=== PATIENT | female | born 2000 | race Caucasian/White ===

== ENCOUNTER 2019-01-08 15:20 | Observation (INO) ==
--- NOTE | 2019-01-08 15:37 | Emergency Department Note ---
Disposition Psych HPI - General Chief Complaint: ED Psychiatric Symptoms Stated Complaint: SI Time Seen by Provider: 01/08/19 15:27 Source: patient - Related Data Previous Rx's Medication Instructions Recorded Lactobacillus Rhamnosus GG 1 each PO DAILY #11 capsule 01/14/16 [Culturelle] Cetirizine HCl/Pseudoephedrine 1 each PO BID #14 tab.er.12h 10/05/16 [Cetirizine-Pse ER 5-120 mg Tab] Ibuprofen [Motrin] 400 mg PO Q6-8H PRN #30 tablet 10/05/16 Lansoprazole [Prevacid] 30 mg PO BID #28 capsule. 07/05/17 Peg 3350/Na Sulf,Bicarb,Cl/KCl 1 each PO ONCE #1 powd.pack 05/16/18 [Golytely Packet] Bisacodyl [Dulcolax] 2 tab PO AD PRN #10 tablet 12/14/18 Ondansetron HCl [Zofran] 4 mg PO TID #15 tablet 12/18/18 Allergies Allergy/AdvReac Type Severity Reaction Status Date / Time Erythromycin Base Allergy Rash Verified 12/18/18 15:47 [From Pediazole] ibuprofen Allergy Abdominal Verified 12/18/18 15:47 Pain Sulfisoxazole Allergy Rash Verified 12/18/18 15:47 [From Pediazole] Past Medical History - Past Medical History Medical history: Reports: non-contributory Surgical history: Reports: other Psychiatric history: Reports: no psych history - Social History Smoking Status: Current every day smoker Smokeless Tobacco Status: No Alcohol use: Reports: none Drug use: Reports: none Physical Exam - General Limitations: no limitations Course Vital Signs Temperature 98.5 F 01/08/19 15:24 Pulse Rate 88 01/08/19 15:24 Respiratory Rate 18 01/08/19 15:24 Blood Pressure 132/84 01/08/19 15:24 O2 Sat by Pulse Oximetry 97 01/08/19 15:24 Temperature 98.5 F 01/08/19 15:24 Pulse Rate 88 01/08/19 15:24 Respiratory Rate 18 01/08/19 15:24 Blood Pressure 132/84 01/08/19 15:24 O2 Sat by Pulse Oximetry 97 01/08/19 15:24 Oxygen Delivery Oxygen Delivery Room Air Psychiatric Medical Clearance - Medical Clearance Checklist Medical History: No Social History Section defined Current Vitals: Last Vital Signs Temp 98.5 F 01/08/19 15:24 Pulse 88 01/08/19 15:24 Resp 18 01/08/19 15:24 BP 132/84 01/08/19 15:24 Pulse Ox 97 01/08/19 15:24 Statement of Medical Clearance: I have evaluated the patient, reviewed diagnostic information, and certify that the patient's medical condition is sufficiently stable that transfer to the psychiatric unit does not pose a significant risk of deterioration.
[2019-01-08 15:56] LABS: Bilirubin,Urine Small (Negative); Blood,Urine Negative (Negative); Clarity,Urine Cloudy (Clear); Color,Urine Yellow (Yellow); Glucose,Urine (UA) Normal (Normal); Ketones,Urine Negative (Negative); Leukocyte Esterase,Urine Moderate (Negative); Nitrite,Urine Negative (Negative); PH,Urine 5.5 pH Units (5.0-8.0); Protein,Urine Negative (Neg-Trace); Specific Gravity,Urine 1.018 (1.010-1.025); Urobilinogen,Urine Normal (Normal)
[2019-01-08 15:59] LABS: Bacteria,Urine Many per hpf (None-Few); Hyaline Casts,Urine None Seen per lpf (None-Few); Squamous Epithelial Cell,Urine Many per lpf (None-Few); WBC,Urine 30-50 per hpf (0-3)
[2019-01-08 16:03] LABS: Basophils % 0.4 %; Eosinophils # 0.3 K/mcL (0.0-0.6); Eosinophils # 0.4 K/mcL (0.0-0.6); Eosinophils % 3.8 %; Eosinophils % 4.5 %; Hematocrit 40.8 % (35.3-44.9); Hematocrit 42.3 % (35.3-44.9); Hemoglobin 14.5 g/dL (11.5-15.4); Hemoglobin 14.6 g/dL (11.5-15.4); Immature Granulocytes % 0.1 % (0-4); Immature Granulocytes % 0.3 % (0-4); Lymphocytes # 2.8 K/mcL (0.6-4.6); Lymphocytes # 2.9 K/mcL (0.6-4.6); Lymphocytes % 35.9 %; Mean Corpuscular HGB Conc 34.5 g/dL (31.6-35.5); Mean Corpuscular HGB Conc 35.5 g/dL (31.6-35.5); Mean Corpuscular Hemoglobin 30.2 pg (28.0-33.3); Mean Corpuscular Hemoglobin 30.5 pg (28.0-33.3); Mean Corpuscular Volume 85.7 fL (83.0-100.0); Mean Corpuscular Volume 87.6 fL (83.0-100.0); Mean Platelet Volume 9.7 fL (9.4-12.4); Mean Platelet Volume 9.8 fL (9.4-12.4); Monocytes # 0.5 K/mcL (0.0-1.3); Monocytes % 6.4 %; Monocytes % 6.7 %; Neutrophils # 4.2 K/mcL (1.6-8.9); Platelet Count 186 K/mcL (140-400); Platelet Count 194 K/mcL (140-400); Red Blood Count 4.76 M/mcL (3.82-4.97); Red Blood Count 4.83 M/mcL (3.82-4.97); Red Cell Distribution Width 12.7 % (11.5-14.5); Red Cell Distribution Width 12.9 % (11.5-14.5); Segmented Neutrophils % 52.7 %; Segmented Neutrophils % 53.8 %
[2019-01-08 16:16] LABS: Amphetamine Screen,Urine Negative ng/mL (Cutoff=1000); Barbiturate Screen,Urine Negative ng/mL (Cutoff=200); Benzodiazepines Screen,Urine Negative ng/mL (Cutoff=200); Cannabinoid Screen,Urine Positive ng/mL (Cutoff = 50); Cocaine Screen,Urine Negative ng/mL (Cutoff= 300); Opiate Screen,Urine Negative ng/mL (Cutoff=300); Phencyclidine Screen,Urine Negative ng/mL (Cutoff=25)
[2019-01-08 16:22] LABS: Acetaminophen < 10 mcg/mL (10-20); BUN/Creatinine Ratio 17 (6-26); Blood Urea Nitrogen 13 mg/dL (6-20); Calcium 9.8 mg/dL (8.6-10.3); Carbon Dioxide 24 mEq/L (23-29); Chloride 109 mEq/L (98-107); Ethanol < 10 mg/dL (Less than 10); Glucose 117 mg/dL (70-105); Osmolality,Calculated 291 (280-300); Potassium 3.7 mEq/L (3.5-5.1); Salicylate < 2.5 mg/dL (15.0-30.0); Sodium 140 mEq/L (136-145); eGFR For Non-African Americans > 60
[2019-01-08 16:25] LABS: Acetaminophen < 10 mcg/mL (10-20); BUN/Creatinine Ratio 18 (6-26); Blood Urea Nitrogen 13 mg/dL (6-20); Calcium 9.5 mg/dL (8.6-10.3); Carbon Dioxide 25 mEq/L (23-29); Chloride 108 mEq/L (98-107); Ethanol < 10 mg/dL (Less than 10); Glucose 112 mg/dL (70-105); Osmolality,Calculated 291 (280-300); Potassium 3.6 mEq/L (3.5-5.1); Salicylate < 2.5 mg/dL (15.0-30.0); Sodium 140 mEq/L (136-145); eGFR For Non-African Americans > 60
--- NOTE | 2019-01-08 16:29 | Emergency Department Note ---
Disposition Clinical Impression: Suicidal ideation Disposition: Admitted As Inpatient Condition: Fair Referrals: NONE,PCP [Primary Care Provider] - Forms: ED Satisfaction Letter General Adult HPI - General Chief complaint: ED Psychiatric Symptoms Stated complaint: SI Time Seen by Provider: 01/08/19 15:27 Source: patient Limitations: no limitations Nursing Notes Reviewed: Yes Vital Signs Reviewed: Yes - History of Present Illness HPI Narrative: Patient presents to the ED with her dad with a chief complaint of suicidal thoughts. Patient states she is been feeling down for the past couple of months. self-harm. She denies any specific plan. No prior attempts. Denies any history of drug or alcohol abuse. Denies intentional overdose. Patient does see a physician and Fred who has recently adjusted her medications about a month ago. She states this is not helping. Denies any prior psychiatric admissions. Denies . Pain Scale: 0 - Related Data Home Medications Medication Instructions Recorded Confirmed Bisacodyl [Dulcolax] 2 tab PO HS 01/08/19 01/08/19 Buspirone HCl [Buspar] 5 mg PO BID 01/08/19 01/08/19 Hyoscyamine SL [Levsin SL] 0.125 mg SL Q6H PRN 01/08/19 01/08/19 Linaclotide [Linzess] 290 mcg PO DAILY 01/08/19 01/08/19 Omeprazole [PriLOSEC] 40 mg PO BID 01/08/19 01/08/19 Allergies Allergy/AdvReac Type Severity Reaction Status Date / Time Erythromycin Base Allergy Rash Verified 12/18/18 15:47 [From Pediazole] ibuprofen Allergy Abdominal Verified 12/18/18 15:47 Pain Sulfisoxazole Allergy Rash Verified 12/18/18 15:47 [From Pediazole] All systems ED: reviewed and negative except as stated. Constitutional: Denies: fever Cardiovascular: Denies: chest pain Respiratory: Denies: dyspnea Gastrointestinal: Denies: abdominal pain Past Medical History - Past Medical History Attestation: Yes The following information was validated with the patient. Source: patient Medical history: Reports: non-contributory Surgical history: Reports: other Psychiatric history: Reports: no psych history - Social History Smoking Status: Current every day smoker Smokeless Tobacco Status: No Alcohol use: Reports: none Drug use: Reports: none Physical Exam Patient is awake and alert. She sitting up in bed in no acute distress. - General Limitations: no limitations General appearance: alert, in no apparent distress - Head Head exam: atraumatic, normocephalic, normal inspection - Eye Eye exam: Present: normal appearance, PERRL - ENT ENT exam: normal exam, normal oropharynx - Neck Neck exam: Present: normal inspection, full ROM - Chest Chest inspection: Present: normal inspection - Respiratory Respiratory exam: Present: normal lung sounds bilaterally - Cardiovascular Cardiovascular exam: Present: regular rate, normal rhythm, normal heart sounds - Abdominal Exam Abdominal exam: Present: soft, Non-Tender - Neurological Exam Neurological exam: Present: alert, oriented X3 - Psychiatric Psychiatric exam: Present: normal affect - Skin Skin exam: Present: warm, dry Course Course Narrative: Patient with no physical complaints. Medical clearance and evaluation by 1A. - Reevaluation(s) Reevaluation #1: Patient medically cleared. 1A has been contacted for consult.[id number] Time: 16:40 Vital Signs Temperature 98.5 F 01/08/19 15:24 Pulse Rate 88 01/08/19 15:24 Respiratory Rate 18 01/08/19 15:24 Blood Pressure 132/84 01/08/19 15:24 O2 Sat by Pulse Oximetry 97 01/08/19 15:24 Temperature 98.5 F 01/08/19 15:24 Pulse Rate 88 01/08/19 15:24 Respiratory Rate 18 01/08/19 15:24 Blood Pressure 132/84 01/08/19 15:24 O2 Sat by Pulse Oximetry 97 01/08/19 15:24 Oxygen Delivery Oxygen Delivery Room Air Medical Decision Making - [facility] Narrative Medical decision making narrative: Patient admitted to psychiatry. - Lab Data Result diagrams: 01/08/19 15:51 01/08/19 15:51 Lab Results 01/08/19 01/08/19 01/08/19 Range/Units 15:51 15:51 15:51 WBC 7.9 8.0 (4.3-11.1) K/mcL RBC 4.83 4.76 (3.82-4.97) M/mcL Hgb 14.6 14.5 (11.5-15.4) g/dL Hct 42.3 40.8 (35.3-44.9) % MCV 87.6 85.7 (83.0-100.0) fL MCH 30.2 30.5 (28.0-33.3) pg MCHC 34.5 35.5 (31.6-35.5) g/dL RDW 12.7 12.9 (11.5-14.5) % Plt Count 194 186 (140-400) K/mcL MPV 9.8 9.7 (9.4-12.4) fL Immature Gran % 0.3 0.1 (0-4) % Seg Neutrophils % 53.8 52.7 % Lymphocytes % 35.0 35.9 % Monocytes % 6.7 6.4 % Eosinophils % 3.8 4.5 % Basophils % 0.4 0.4 % Neutrophils # 4.2 4.2 (1.6-8.9) K/mcL Lymphocytes # 2.8 2.9 (0.6-4.6) K/mcL Monocytes # 0.5 0.5 (0.0-1.3) K/mcL Eosinophils # 0.3 0.4 (0.0-0.6) K/mcL Basophils # 0.0 0.0 (0.0-0.2) K/mcL Sodium 140 (136-145) mEq/L Potassium 3.7 (3.5-5.1) mEq/L Chloride 109 H (98-107) mEq/L Carbon Dioxide 24 (23-29) mEq/L BUN 13 (6-20) mg/dL Creatinine 0.75 (0.60-1.20) mg/dL Est GFR ( Amer) > 60 Est GFR (Non-Af Amer) > 60 BUN/Creatinine Ratio 17 (6-26) Glucose 117 H (70-105) mg/dL Calculated Osmolality 291 (280-300) Calcium 9.8 (8.6-10.3) mg/dL TSH (0.340-5.600) mcIU/mL Urine Color (Yellow) Urine Clarity (Clear) Urine pH (5.0-8.0) pH Units Ur Specific [place] (1.010-1.025) Urine Protein (Neg-Trace) mg/dL Urine Glucose (UA) (Normal) mg/dL Urine Ketones (Negative) mg/dL Urine Blood (Negative) Urine Nitrite (Negative) Urine Bilirubin (Negative) Urine Urobilinogen (Normal) mg/dL Ur Leukocyte Esterase (Negative) Urine Microscopic RBC (0-3) per hpf Urine Microscopic WBC (0-3) per hpf Ur Squamous Epith Cells (None-Few) per lpf Urine Bacteria (None-Few) per hpf Hyaline Casts (None-Few) per lpf Urine Test (Negative) Salicylates < 2.5 L (15.0-30.0) mg/dL Urine Opiates Screen (Yceemv=322) ng/mL Acetaminophen < 10 L (10-20) mcg/mL Ur Barbiturates Screen (Bpteuc=398) ng/mL Ur Phencyclidine Scrn (Cutoff=25) ng/mL Ur Amphetamines Screen (Cndeji=7025) ng/mL U Benzodiazepines Scrn (Olgpuh=971) ng/mL Urine Cocaine Screen (Cutoff= 300) ng/mL U Marijuana (THC) Screen (Cutoff = 50) ng/mL Ur Drug Screen Interp Ethyl Alcohol < 10 (Less than 10) mg/dL 01/08/19 01/08/19 01/08/19 Range/Units 15:51 Unknown Unknown WBC (4.3-11.1) K/mcL RBC (3.82-4.97) M/mcL Hgb (11.5-15.4) g/dL Hct (35.3-44.9) % MCV (83.0-100.0) fL MCH (28.0-33.3) pg MCHC (31.6-35.5) g/dL RDW (11.5-14.5) % Plt Count (140-400) K/mcL MPV (9.4-12.4) fL Immature Gran % (0-4) % Seg Neutrophils % % Lymphocytes % % Monocytes % % Eosinophils % % Basophils % % Neutrophils # (1.6-8.9) K/mcL Lymphocytes # (0.6-4.6) K/mcL Monocytes # (0.0-1.3) K/mcL Eosinophils # (0.0-0.6) K/mcL Basophils # (0.0-0.2) K/mcL Sodium 140 (136-145) mEq/L Potassium 3.6 (3.5-5.1) mEq/L Chloride 108 H (98-107) mEq/L Carbon Dioxide 25 (23-29) mEq/L BUN 13 (6-20) mg/dL Creatinine 0.74 (0.60-1.20) mg/dL Est GFR ( Amer) > 60 Est GFR (Non-Af Amer) > 60 BUN/Creatinine Ratio 18 (6-26) Glucose 112 H (70-105) mg/dL Calculated Osmolality 291 (280-300) Calcium 9.5 (8.6-10.3) mg/dL TSH 1.209 (0.340-5.600) mcIU/mL Urine Color Yellow (Yellow) Urine Clarity Cloudy A (Clear) Urine pH 5.5 (5.0-8.0) pH Units Ur Specific [place] 1.018 (1.010-1.025) Urine Protein Negative (Neg-Trace) mg/dL Urine Glucose (UA) Normal (Normal) mg/dL Urine Ketones Negative (Negative) mg/dL Urine Blood Negative (Negative) Urine Nitrite Negative (Negative) Urine Bilirubin Small H (Negative) Urine Urobilinogen Normal (Normal) mg/dL Ur Leukocyte Esterase Moderate H (Negative) Urine Microscopic RBC 3-5 H (0-3) per hpf Urine Microscopic WBC 30-50 H (0-3) per hpf Ur Squamous Epith Cells Many H (None-Few) per lpf Urine Bacteria Many H (None-Few) per hpf Hyaline Casts None Seen (None-Few) per lpf Urine Test (Negative) Salicylates < 2.5 L (15.0-30.0) mg/dL Urine Opiates Screen Negative (Yanvub=007) ng/mL Acetaminophen < 10 L (10-20) mcg/mL Ur Barbiturates Screen Negative (Fwzpot=848) ng/mL Ur Phencyclidine Scrn Negative (Cutoff=25) ng/mL Ur Amphetamines Screen Negative (Xqikzu=5007) ng/mL U Benzodiazepines Scrn Negative (Gynjld=063) ng/mL Urine Cocaine Screen Negative (Cutoff= 300) ng/mL U Marijuana (THC) Screen Positive H (Cutoff = 50) ng/mL Ur Drug Screen Interp See Below Ethyl Alcohol < 10 (Less than 10) mg/dL 01/08/19 Range/Units Unknown WBC (4.3-11.1) K/mcL RBC (3.82-4.97) M/mcL Hgb (11.5-15.4) g/dL Hct (35.3-44.9) % MCV (83.0-100.0) fL MCH (28.0-33.3) pg MCHC (31.6-35.5) g/dL RDW (11.5-14.5) % Plt Count (140-400) K/mcL MPV (9.4-12.4) fL Immature Gran % (0-4) % Seg Neutrophils % % Lymphocytes % % Monocytes % % Eosinophils % % Basophils % % Neutrophils # (1.6-8.9) K/mcL Lymphocytes # (0.6-4.6) K/mcL Monocytes # (0.0-1.3) K/mcL Eosinophils # (0.0-0.6) K/mcL Basophils # (0.0-0.2) K/mcL Sodium (136-145) mEq/L Potassium (3.5-5.1) mEq/L Chloride (98-107) mEq/L Carbon Dioxide (23-29) mEq/L BUN (6-20) mg/dL Creatinine (0.60-1.20) mg/dL Est GFR ( Amer) Est GFR (Non-Af Amer) BUN/Creatinine Ratio (6-26) Glucose (70-105) mg/dL Calculated Osmolality (280-300) Calcium (8.6-10.3) mg/dL TSH (0.340-5.600) mcIU/mL Urine Color (Yellow) Urine Clarity (Clear) Urine pH (5.0-8.0) pH Units Ur Specific [place] (1.010-1.025) Urine Protein (Neg-Trace) mg/dL Urine Glucose (UA) (Normal) mg/dL Urine Ketones (Negative) mg/dL Urine Blood (Negative) Urine Nitrite (Negative) Urine Bilirubin (Negative) Urine Urobilinogen (Normal) mg/dL Ur Leukocyte Esterase (Negative) Urine Microscopic RBC (0-3) per hpf Urine Microscopic WBC (0-3) per hpf Ur Squamous Epith Cells (None-Few) per lpf Urine Bacteria (None-Few) per hpf Hyaline Casts (None-Few) per lpf Urine Test Negative (Negative) Salicylates (15.0-30.0) mg/dL Urine Opiates Screen (Ouwppt=312) ng/mL Acetaminophen (10-20) mcg/mL Ur Barbiturates Screen (Dizyck=531) ng/mL Ur Phencyclidine Scrn (Cutoff=25) ng/mL Ur Amphetamines Screen (Vesumh=7208) ng/mL U Benzodiazepines Scrn (Clmfje=936) ng/mL Urine Cocaine Screen (Cutoff= 300) ng/mL U Marijuana (THC) Screen (Cutoff = 50) ng/mL Ur Drug Screen Interp Ethyl Alcohol (Less than 10) mg/dL
[2019-01-08 16:37] LABS: Thyroid Stimulating Hormone 1.209 mcIU/mL (0.340-5.600)
[2019-01-08] MEDS ORDERED: Haloperidol Lactate 5 MG/ML VIAL IM PRN (17:20)
[2019-01-08] MEDS ORDERED: Mag Hydrox/Al Hydrox/Simeth 30 ML UDC PO PRN (17:20)
[2019-01-08] MEDS ORDERED: Acetaminophen 325 MG TABLET PO PRN (17:20)
[2019-01-08] MEDS ORDERED: *HR* LORazepam 1 MG TABLET PO PRN (17:20)
[2019-01-08] MEDS ORDERED: traZODone 50 MG TABLET PO PRN (17:20)
[2019-01-08] MEDS ORDERED: *HR* LORazepam 2 MG/ML VIAL IM PRN (17:20)
[2019-01-08] MEDS ORDERED: hydrOXYzine pamoate 25 MG CAPSULE PO PRN (17:20)
[2019-01-08] MEDS ORDERED: MOM Conc 10 ML UD.LIQ PO PRN (17:20)
[2019-01-08] MEDS ORDERED: Nicotine 2 MG GUM BC PRN (18:39)
--- NOTE | 2019-01-09 08:50 | Discharge Summary ---
Date of Encounter: 01/09/19 Time of Encounter: 08:48 History of Present Illness Chief complaint: suicidal thoughts Admitted From: Emergency Dept History of Present Illness: Ms. Martin is a 18 year old female who came to the emergency room with her father for suicidal thoughts. She reports that she has been depressed since her mother 3 years ago and that the suicidal thoughts have been worse since the anniversary of her in October. She said that she has been having increasing suicidal ideations. She reports that she does not have a specific plan. She reports no intent to harm herself. She has been taking BuSpar but feels it is not effective. She reports sad mood, decreased interest, feelings of guilt and worthlessness, low interest, and decreased energy. She reports that her anxiety is not as much of a problem as the depression. She denies a history of manic symptoms or psychosis. Past Med Surg Social Fam HX - Past Medical History Source: patient Medical history: non-contributory, GERD, other (Chronic constipation) - Past Psychiatric History Psychiatric history: Reports: anxiety, depression. Denies: prior suicide attempt, previous psychiatric hospitalization Past psychiatric history details: Patient reports she has never been in a psychiatric hospital before. She says that she has been tried on different medications including Zoloft and Lexapro as well as Prozac and Wellbutrin. She said they helped briefly. She said the BuSpar that she is currently on has not been helpful. She denies prior suicide attempts. She sees a therapist in [place] but feels she does not have a good connection with her and would like to be linked with anyone. She is not linked with a psychiatrist or primary care physician prescribes her psychiatric medications. Family psychiatric history: Yes Family Psychiatric History Details: She reports depression in her brother father and mother Family History of Suicide: Attempted Family Suicide History Details: She said that her brother attempted suicide with a shotgun - Past Surgical History Surgical History: other - Social History Smoking Status: Current every day smoker Packs per day: .25 Smokeless Tobacco Status: No Alcohol use: none Drug use: none Occupational status: student Current living situation: Home, With Family Activity Level: Independent ambulation Recent Out of Country Travel Within the Last 8 Weeks: No Exposure or Possible Exposure to Illness During Travel: No Additional social history: She is single. She is currently a student. No significant trauma history other than the of her mother 3 years ago - Family History Father Adopted: [place]: nina martin Age: 63 Family Member Ethnicity: Non- Living Status: Still Living Hx Family Cardiac Disorders: Yes Hx Family Respiratory Disorders: Yes (COPD) Hx Family Cancer: No Hx Family GI Disorders: No Hx Family Genitourinary Disorders: No Hx Family Endocrine Disorder: No Hx Family Musculoskeletal Disorders: No Hx Family Neuromuscular Disorders: No Hx Family Neurologic Disorders: No Hx Family HEENT Disorders: No Hx Family Autoimmune Disorders: No Hx Family Reproductive Disorders: No Hx Family Psychosocial Disorders: No Hx Family Medical Disorders: No Medications - Discharge Medications Prescriptions: traZODone [TraZODone] 50 mg PO HS PRN #15 tablet PRN Reason: Insomnia Venlafaxine XR (24 HR) [Effexor Xr] 37.5 mg PO DAILY #15 cap.er.24h Bisacodyl [Dulcolax] 2 tab PO HS 01/08/19 [History] Hyoscyamine SL [Levsin Sl] 0.125 mg SL Q6H PRN 01/08/19 [History] Linaclotide [Linzess] 290 mcg PO DAILY 01/08/19 [History] Omeprazole [PriLOSEC] 40 mg PO BID 01/08/19 [History] Venlafaxine XR (24 HR) [Effexor Xr] 37.5 mg PO DAILY #15 cap.er.24h 01/09/19 [Rx] traZODone [TraZODone] 50 mg PO HS PRN #15 tablet 01/09/19 [Rx] Allergy/AdvReac Type Severity Reaction Status Date / Time Erythromycin Base Allergy Rash Verified 12/18/18 15:47 [From Pediazole] ibuprofen Allergy Abdominal Verified 12/18/18 15:47 Pain Sulfisoxazole Allergy Rash Verified 12/18/18 15:47 [From Pediazole] Review of Systems Constitutional: Denies: fever Eyes: Denies: eye pain Ears, Nose, Throat: Denies: ear pain Cardiovascular: Denies: chest pain Respiratory: Denies: cough Gastrointestinal: Reports: constipation Genitourinary female: Denies: urgency Musculoskeletal: Denies: back pain Integumentary: Denies: rash Neurological: Denies: headache Psychiatric: Reports: depression, anxiety, suicidal ideation Endocrine: Reports: fatigue Hematologic/Lymphatic: Denies: easy bleeding Allergic/Immunologic: Denies: facial swelling Exam - HEENT Head exam IM: Present: atraumatic Eye exam IM: Present: normal appearance ENT exam IM: Present: mucous membranes moist - Neurological Neurological exam: Present: CN II-XII intact (c) - Respiratory Respiratory exam IM: Absent: respiratory distress - GI/Abdominal GI/Abdominal exam IM: Present: tenderness, no peritoneal signs - Extremities Extremities exam IM: Present: full ROM - Skin Skin exam IM: Present: dry - Constitutional Vitals: Temp Pulse Resp BP Pulse Ox 98.1 F 97 16 121/82 96 01/08/19 21:00 01/08/19 21:00 01/08/19 21:00 01/08/19 21:00 01/08/19 21:00 General appearance: age & developmentally appropriate, well-groomed, well- nourished - Musculoskeletal Gait: normal Station: relaxed Strength & Tone: normal for patient - Psychiatric Patient Orientation: Yes Person, Yes Time, Yes Place Level of alertness: Alert Behavior: calm, cooperative Psychomotor activity: Normal Eye Contact: Maintains Eye Contact Mood Description: Euthymic/stable Patient description of mood: Okay Affect description: congruent with mood, full range Speech Volume: Normal Speech pattern: normal rate, normal rhythm, normal tone, fluent, spontaneous Language & Vocabulary: consistent with education Thought Process: Intact, Linear, Goal Oriented Thought Content: No Suicidal ideation (She said she had some last night when she went to the ER and she does chronically have them off and on with no specific plan but says currently she does not have any thoughts of harming herself.), No Homicidal ideation, No Overt delusions Perceptual Disturbances: No Auditory hallucinations, No Visual hallucinations Attention Span Ability: Capable of Focused Attention Memory Description: Grossly Intact Patient Reliability: Reliable Historian Fund of knowledge: Yes abstraction ability, Yes average, Yes aware of current events Intelligence Estimate: Average Judgment: Good Insight: Full Results - Drug Levels and Toxicology Drug Levels and Toxicology: Drug Levels and Toxicity 01/08/19 01/08/19 01/08/19 15:51 15:51 Unknown Urine Opiates Screen Negative Acetaminophen < 10 L < 10 L Ur Barbiturates Screen Negative Ur Phencyclidine Scrn Negative Ur Amphetamines Screen Negative U Benzodiazepines Scrn Negative Urine Cocaine Screen Negative U Marijuana (THC) Screen Positive H Ethyl Alcohol < 10 < 10 - Labs Labs: Laboratory Last Values WBC 8.0 K/mcL (4.3-11.1) 01/08/19 15:51 RBC 4.76 M/mcL (3.82-4.97) 01/08/19 15:51 Hgb 14.5 g/dL (11.5-15.4) 01/08/19 15:51 Hct 40.8 % (35.3-44.9) 01/08/19 15:51 MCV 85.7 fL (83.0-100.0) 01/08/19 15:51 MCH 30.5 pg (28.0-33.3) 01/08/19 15:51 MCHC 35.5 g/dL (31.6-35.5) 01/08/19 15:51 RDW 12.9 % (11.5-14.5) 01/08/19 15:51 Plt Count 186 K/mcL (140-400) 01/08/19 15:51 MPV 9.7 fL (9.4-12.4) 01/08/19 15:51 Immature Gran % 0.1 % (0-4) 01/08/19 15:51 Seg Neutrophils % 52.7 % 01/08/19 15:51 Lymphocytes % 35.9 % 01/08/19 15:51 Monocytes % 6.4 % 01/08/19 15:51 Eosinophils % 4.5 % 01/08/19 15:51 Basophils % 0.4 % 01/08/19 15:51 Neutrophils # 4.2 K/mcL (1.6-8.9) 01/08/19 15:51 Lymphocytes # 2.9 K/mcL (0.6-4.6) 01/08/19 15:51 Monocytes # 0.5 K/mcL (0.0-1.3) 01/08/19 15:51 Eosinophils # 0.4 K/mcL (0.0-0.6) 01/08/19 15:51 Basophils # 0.0 K/mcL (0.0-0.2) 01/08/19 15:51 Sodium 140 mEq/L (136-145) 01/08/19 15:51 Potassium 3.6 mEq/L (3.5-5.1) 01/08/19 15:51 Chloride 108 mEq/L (98-107) H 01/08/19 15:51 Carbon Dioxide 25 mEq/L (23-29) 01/08/19 15:51 BUN 13 mg/dL (6-20) 01/08/19 15:51 Creatinine 0.74 mg/dL (0.60-1.20) 01/08/19 15:51 Est GFR ( Amer) > 60 01/08/19 15:51 Est GFR (Non-Af Amer) > 60 01/08/19 15:51 BUN/Creatinine Ratio 18 (6-26) 01/08/19 15:51 Glucose 112 mg/dL (70-105) H 01/08/19 15:51 Calculated Osmolality 291 (280-300) 01/08/19 15:51 Calcium 9.5 mg/dL (8.6-10.3) 01/08/19 15:51 TSH 1.209 mcIU/mL (0.340-5.600) 01/08/19 15:51 Urine Color Yellow (Yellow) 01/08/19 Unknown Urine Clarity Cloudy (Clear) A 01/08/19 Unknown Urine pH 5.5 pH Units (5.0-8.0) 01/08/19 Unknown Ur Specific [place] 1.018 (1.010-1.025) 01/08/19 Unknown Urine Protein Negative mg/dL (Neg-Trace) 01/08/19 Unknown Urine Glucose (UA) Normal mg/dL (Normal) 01/08/19 Unknown Urine Ketones Negative mg/dL (Negative) 01/08/19 Unknown Urine Blood Negative (Negative) 01/08/19 Unknown Urine Nitrite Negative (Negative) 01/08/19 Unknown Urine Bilirubin Small (Negative) H 01/08/19 Unknown Urine Urobilinogen Normal mg/dL (Normal) 01/08/19 Unknown Ur Leukocyte Esterase Moderate (Negative) H 01/08/19 Unknown Urine Microscopic RBC 3-5 per hpf (0-3) H 01/08/19 Unknown Urine Microscopic WBC 30-50 per hpf (0-3) H 01/08/19 Unknown Ur Squamous Epith Cells Many per lpf (None-Few) H 01/08/19 Unknown Urine Bacteria Many per hpf (None-Few) H 01/08/19 Unknown Hyaline Casts None Seen per lpf (None-Few) 01/08/19 Unknown Urine Test Negative (Negative) 01/08/19 Unknown Salicylates < 2.5 mg/dL (15.0-30.0) L 01/08/19 15:51 Urine Opiates Screen Negative ng/mL (Csdcof=179) 01/08/19 Unknown Acetaminophen < 10 mcg/mL (10-20) L 01/08/19 15:51 Ur Barbiturates Screen Negative ng/mL (Eggqmz=701) 01/08/19 Unknown Ur Phencyclidine Scrn Negative ng/mL (Cutoff=25) 01/08/19 Unknown Ur Amphetamines Screen Negative ng/mL (Vcyejs=6110) 01/08/19 Unknown U Benzodiazepines Scrn Negative ng/mL (Jvbgsm=522) 01/08/19 Unknown Urine Cocaine Screen Negative ng/mL (Cutoff= 300) 01/08/19 Unknown U Marijuana (THC) Screen Positive ng/mL (Cutoff = 50) H 01/08/19 Unknown Ur Drug Screen Interp See Below 01/08/19 Unknown Ethyl Alcohol < 10 mg/dL (Less than 10) 01/08/19 15:51 Diagnosis - Discharge Diagnosis (1) Severe recurrent major depression without psychotic features Status: Acute Assessment and Plan - Patient/Caregiver Discharge Instructions Activity: resume usual activities as tolerated, return to school (January return to school January 12) Diet: regular diet Additional Instructions: Continue current medications. Follow up with outpatient mental health. Encourage continued therapy in a group or individual setting. The patient was discharged to home. - Follow up Plan Follow up with: NONE,PCP [Primary Care Provider] - Functional capacity at discharge: independent ambulation Overall status at discharge: Stable Disposition: Home, Self-Care Provider Date of admission: 01/08/19 17:11 Primary care physician: PCP NONE Discharging clinician: Breanna Chandler [facility] Hospital course: Ms. Martin is a 18 year old female who came to the emergency room with her father for depression with chronic suicidal ideations. She reports she does not have any intent or plan to kill herself. She is future oriented and wants to continue school. She was interested in adjusting her medication so she was started on trazodone for sleep and her BuSpar was stopped as this was not being helpful for anxiety and she was started on Effexor. Patient was educated of diagnosis and the risk-benefit side effects of this alternative treatment options and was monitored for responsiveness and side effects. Mood anxiety sleep and appetite interest improved as did future orientation. Self-harm thoughts subsided, thinking was clear and mood was stable. Patient was able to attend both individual and group therapy sessions as well as meet with the psychiatrist daily and urged to discuss any medication or treatment issues or other concerns. The patient was educated primarily by verbal means about their diagnosis and manifestations in their life. The option for treatment including group and individual therapy programming was offered to the patient in addition to the use of medications with all their potential risks, benefits, and side effects as well as the risks of not taking medication and non-adhereance were discussed with the patient at length. The patient was given the opportunity to ask questions and was noted to participate in the treatment in the planning process. The patient felt ready and eager to be discharged from the inpatient psychiatric unit to continue on with treatment as an outpatient. The patient agreed that is they were safe for this disposition. The patient was considered to be able to participate in informed consent and decision making with respect to medical, legal, and financial issues of the time of discharge. At the time of discharge the patient adamantly denied any concerns for lethality including suicidal or homicidal thoughts ideations or plans and was future oriented toward ongoing mental health care. Time spent discussing smoking cessation with patient: 3 to 10 minutes Does patient wish to continue nicotine replacement upon disc: No - Time Spent with Patient Total time spent providing and/or coordinating discharge services: 45 minutes Greater than 30 minutes Specific discharge activities: Interval history reviewed. Available labs reviewed . Psychotherapy provided. Patient had an opportunity to ask questions and address concerns. Patient was in agreement with the treatment plan. The risks benefits and side effects of medications were discussed with the patient, including alternatives and treatment. The patient was educated on the abstaining from any alcohol or illicit substances, following up with all scheduled appointments, and taking all medications as prescribed. Procedures - Procedures Procedures: Medication Management, Crisis Stabilization, Supportive Therapy, Group Therapy, Psychoeducational Therapy Quality - Multiple Antipsychotics Patient discharged on 2 or more antipsychotic medications: No
[2019-01-09] MEDS ORDERED: Venlafaxine XR (24 HR) 37.5 MG CAP.ER.24H PO SCH (09:00)
[2019-01-09 09:37] VITALS: BP 127/85
== END 2019-01-09 11:40 | disposition home or self-care (01) ==
LOC: EMEROOARM 15:20 → 1ANU 15:20
PROVIDERS: ADMIT Psychiatry & Neurology Psychiatry; ATTEND Psychiatry & Neurology Psychiatry